=== PATIENT | male | born 1990 | race Hispanic/Latino ===

== ENCOUNTER 2025-03-27 21:30 | Emergency (ER) | payer BC ==
[~2025-03-27] VITALS: Ht 172.7 cm; Wt 95.3 kg
--- NOTE | 2025-03-27 22:36 | ERN ---
General Chief Complaint: Abdominal Pain Stated Complaint: ABD PAIN Time Seen by MD: 21:34 Source: patient History of Present Illness Initial Comments Patient is a 35-year-old male coming in complaining of right lower quadrant pain. Patient states that this pain has been ongoing for couple of months but has progressively gotten worse. He states that two days ago with the pain was so unbearable he had decided to come in for further evaluation today. No fever no chills no nausea no vomiting. Allergies: Coded Allergies: No Known Drug Allergies (Unverified Allergy, Unknown, 03/27/25) Past Medical History Past Medical History: No Pertinent History Past Surgical History: None ROS Dictation CONSTITUTIONAL: No chills, no fever, no weakness, no diaphoresis, no malaise. HEAD/FACE: No signs of trauma. EENT: No eye pain, no blurred vision, no tearing, no double vision, no ear pain, no ear discharge, no nose pain, no nasal congestion, no throat pain, no throat swelling, no mouth pain. RESPIRATORY: No cough, no orthopnea, no SOB, no stridor, no wheezing. CARDIOVASCULAR: No chest pain, no edema, no palpitations, no syncope. GASTROINTESTINAL/ABDOMINAL: abdominal pain, no constipation, no diarrhea, no nausea, no vomiting. GENITOURINARY: No abnormal discharge, no dysuria, no frequent urination, no hematuria. No complaints of pain in the genitals. MUSCULOSKELETAL: No back pain, no gout, no joint pain, no joint swelling, no muscle pain, no muscle stiffness, no neck pain. INTEGUMENTARY: No change in color, no change in hair/nails, no dryness, no lesion, no lumps, no rash. NEUROLOGICAL/PSYCH: No anxiety, not depressed, no emotional problem, no headache, no numbness, no pre-existing deficit, no history of seizures, no tremors, no weakness. HEMATOLOGIC/LYMPHATIC: Not anemic, no history of blood clots, no apparent bleeding, no bruising, glands not swollen. All Systems Negative, Except as Noted. Physical Exam Physical Exam Dictation VITAL SIGNS: Reviewed. GENERAL APPEARANCE: Alert, oriented x3, no acute distress, obese. HEAD AND FACE: Non-traumatic. EYES: PERRL, pink conjunctivas, eyelid no trauma, anterior chamber clear. EARS: Pinnas intact and no signs of trauma or erythema. Ear canals clear and no discharge. TMs no erythema. NOSE: No discharge, no bleeding. OROPHARYNX: Mouth normal, teeth no caries, tongue pink. Pharynx clear, no erythema. Tonsils no exudates, no abscesses noted. Mucous membrane moist. NECK: Supple, non-tender, no thyromegaly, no masses, no JVD, no bruits. BREAST: Deferred. CHEST: No tenderness, no crepitus, no paradoxical movement, no retractions. LUNGS: Clear, well-ventilated, symmetric, no rales, no wheezing, no rhonchi, no stridor, good breath sounds bilaterally. HEART: Regular rate, regular rhythm, no murmur, no gallops. VASCULAR: No peripheral edema. ABDOMEN: Soft, positive bowel sounds, nondistended, no guarding, right lower quadrant tenderness on palpation, no rebound, no masses no hepatomegaly, no splenomegaly, no Navarro's sign, no hernias. RECTAL: Deferred. GENITAL: Deferred. NEUROLOGICAL: Normal speech, gross motor function intact, gross sensory function intact. MUSCULOSKELETAL: Neck nontender, full range of motion, back nontender, full range of motion. EXTREMITIES: Nontender, full range of motion. SKIN: Color pink, dry, no turgor, no rash, no lacerations, no abrasions, no contusions. LYMPHATICS: Deferred. Results Laboratory and Microbiology Labs Reviewed?: Yes EKG/XRAY/US/CT/MRI CT Scan Comment [address] [address] IMAGING REPORT Signed PATIENT: MARC FERNANDO MR#: [id number] : 1990 SEX: M AGE: 35 LOCATION: [facility] ORDER 38 STATUS: REG REPORT#: [id number] SERVICE 38 REASON: RLQ PAIN ORDERING PHYSICIAN: RITU COVINGTON MD PROCEDURE: ABD PEL WO - CT ABDOMEN/PELVIS W/O CONTRAST EXAM: CT Abdomen and Pelvis without IV contrast. CLINICAL HISTORY: Right lower quadrant pain. TECHNIQUE: Axial computed tomography images of the abdomen and pelvis without intravenous contrast. CONTRAST: No IV contrast. COMPARISON: None. FINDINGS: LUNG BASES: The lung bases appear clear except for bibasilar streaky atelectasis. No pleural effusions are seen. LIVER: 0.6 cm cystic structure in the right hepatic lobe. GALLBLADDER AND BILE DUCTS: The gallbladder appears within normal limits. No radiopaque gallstones are seen. No biliary ductal dilatation is evident. PANCREAS: Unremarkable. SPLEEN: Unremarkable. ADRENAL GLANDS: Unremarkable. KIDNEYS, URETERS, AND BLADDER: There is a 3.7 mm non-obstructing left renal calculus. The kidneys otherwise appear within normal limits. There is no hydronephrosis or hydroureter. No ureteral calculus. STOMACH AND BOWEL: Unremarkable appearance of the stomach and bowel. No evidence of bowel obstruction. No evidence suggesting enteritis or colitis. APPENDIX: Unremarkable. PERITONEUM: No free fluid. No free air. LYMPH NODES: No lymphadenopathy is evident. REPRODUCTIVE: Unremarkable. VASCULATURE: No evidence of abdominal aortic aneurysm. BONES: No aggressive appearing osseous lesion. No acute osseous pathology is evident. SOFT TISSUE: A very small fat-containing umbilical hernia. IMPRESSION: Small 3.7 mm non-obstructing left renal calculus. No ureteral calculus or hydroureteronephrosis. No acute intra-abdominal or pelvic abnormality. Unremarkable appendix. /[place] DICTATED BY: AURELIANO WHYTE Jr., MD DATE: 03/28/25 0003 ELECTRONICALLY SIGNED BY: AURELIANO WHYTE Jr., MD DATE: 03/28/25 0003 MDM MDM: Differential diagnosis: Nephrolithiasis, abdominal pain, appendicitis, Rationale: Tests considered and ordered secondary to shared decision making include: Previous outside records reviewed: Old ER visits. Risk of complication and/or morbidity or mortality of patient management: None Medications-Per medication reconciliation Need for hospitalization: Patient does not meet criteria for hospitalization. Need for emergency major/minor surgery: No Patient is a 35-year-old male coming in complaining of abdominal pain. Per patient this pain has been ongoing for two months. He states that last night the pain was unbearable only comes in for further evaluation CT of the abdomen that did not disclose acute findings incidental left-sided nephrolithiasis present. Patient will be discharged in stable condition with a diagnosis of nephrolithiasis. Did advised him appropriate follow up with PCP for long-term management. ED Course Orders Procedure Category Date Status Time Ct Abdomen/Pelvis W/O CT 03/27/25 Resulted Contrast 21:39 Vital Signs Date Time Temp Pulse Resp B/P (MAP) Pulse Ox O2 Delivery O2 Flow Rate FiO2 03/27/25 21:33 98.2 78 18 140/75 98 DX & DISP Disposition: Discharge Departure Impression: Primary Impression: Nephrolithiasis Condition: Stable Additional Instructions: FOLLOW-UP WITH PRIMARY CARE PROVIDER IN 1 TO 2 DAYS. TAKE MEDICATIONS DIRECTED HERE IN THE EMERGENCY ROOM. OKAY TO CONTINUE HOME MEDICATIONS UNLESS OTHERWISE DISCUSSED DURING YOUR VISIT IN THE EMERGENCY ROOM TODAY. RETURN TO YOUR NEAREST EMERGENCY ROOM IF SYMPTOMS WORSEN OR IF THERE IS NO IMPROVEMENT. CALL 911 IF YOU NEED IMMEDIATE ASSISTANCE. TAKE TYLENOL [id number] NEEDED AND IF NO CONTRAINDICATIONS ARE PRESENT. INCREASE ORAL HYDRATION. A WOUND CULTURE OR URINE CULTURE WAS ORDERED HERE IN THE EMERGENCY ROOM DEPARTMENT PLEASE FOLLOW-UP WITH PRIMARY CARE PROVIDER AND ADVISE THEM TO GET REPORTS FROM OUR FACILITY. IF YOU HAD ANY DAI WRAP/SPLINTS THAT WERE APPLIED HERE, PLEASE DO NOT REMOVE THEM UNTIL YOU SEE YOUR PRIMARY CARE OR SPECIALTY. Referrals: Referrals: DARRELL MARTI MD Time of Disposition: 23:11 RITU COVINGTON MD Mar 27, 2025 22:36
--- NOTE | 2025-03-27 23:04 | HMCIMG ---
EXAM: CT Abdomen and Pelvis without IV contrast. CLINICAL HISTORY: Right lower quadrant pain. TECHNIQUE: Axial computed tomography images of the abdomen and pelvis without intravenous contrast. CONTRAST: No IV contrast. COMPARISON: None. FINDINGS: LUNG BASES: The lung bases appear clear except for bibasilar streaky atelectasis. No pleural effusions are seen. LIVER: 0.6 cm cystic structure in the right hepatic lobe. GALLBLADDER AND BILE DUCTS: The gallbladder appears within normal limits. No radiopaque gallstones are seen. No biliary ductal dilatation is evident. PANCREAS: Unremarkable. SPLEEN: Unremarkable. ADRENAL GLANDS: Unremarkable. KIDNEYS, URETERS, AND BLADDER: There is a 3.7 mm non-obstructing left renal calculus. The kidneys otherwise appear within normal limits. There is no hydronephrosis or hydroureter. No ureteral calculus. STOMACH AND BOWEL: Unremarkable appearance of the stomach and bowel. No evidence of bowel obstruction. No evidence suggesting enteritis or colitis. APPENDIX: Unremarkable. PERITONEUM: No free fluid. No free air. LYMPH NODES: No lymphadenopathy is evident. REPRODUCTIVE: Unremarkable. VASCULATURE: No evidence of abdominal aortic aneurysm. BONES: No aggressive appearing osseous lesion. No acute osseous pathology is evident. SOFT TISSUE: A very small fat-containing umbilical hernia. IMPRESSION: Small 3.7 mm non-obstructing left renal calculus. No ureteral calculus or hydroureteronephrosis. No acute intra-abdominal or pelvic abnormality. Unremarkable appendix. /Fuentes
[2025-03-27 23:39] VITALS: BP 136/74; PULSE 72; RESP 16; TEMP 98.1; O2SAT 98
== END 2025-03-27 23:40 | disposition home or self-care (01) ==
LOC: EDH 21:30
DX: N20.0 Calculus of kidney (principal)
CPT/HCPCS: 74176; 99284